=== PATIENT | male | born 1970 ===

== ENCOUNTER 2024-12-19 13:15 | Outpatient (CLI) | payer BC, SELFPAY ==
[2024-12-19 18:14] LABS: PSA, Screening 0.7 ng/mL (<=3.5)
== END 2024-12-19 13:16 | disposition home or self-care (01) ==
LOC: LBO 13:16
PROVIDERS: PCP Physician Assistant; Visit Provider Nurse Practitioner Gerontology
DX: R97.20 Elevated prostate specific antigen [PSA] (principal)
CPT/HCPCS: 36415; 84153